=== PATIENT | female | born 1995 | race Caucasian/White ===

== ENCOUNTER → 2017-02-27 | Outpatient (CLI) | payer BC ==
--- NOTE | 2017-02-27 07:33 | MR ---
EXAMINATION TYPE: MR cervical spine wo con DATE OF EXAM: 02/27/2017 6:46 AM COMPARISON: NONE HISTORY: neck pain Multiplanar MultiSpin echo imaging of the cervical spine was performed. Comparison: none C2-C3: No evidence for degenerative disc disease. No disc bulge/herniation or protrusion. No Canal stenosis. Foramina are patent bilaterally. C3-C4: No evidence for degenerative disc disease. No disc bulge/herniation or protrusion. No Canal stenosis. Foramina are patent bilaterally. C4-C5: No evidence for degenerative disc disease. No disc bulge/herniation or protrusion. No Canal stenosis. Foramina are patent bilaterally. C5-C6: No evidence for degenerative disc disease. No disc bulge/herniation or protrusion. No Canal stenosis. Foramina are patent bilaterally. C6-C7: No evidence for degenerative disc disease. No disc bulge/herniation or protrusion. No Canal stenosis. Foramina are patent bilaterally. C7-T1: No evidence for degenerative disc disease. No disc bulge/herniation or protrusion. No Canal stenosis. Foramina are patent bilaterally. Cervical segments are intact. There is normal alignment. Cervical spinal cord is of normal signal. Craniovertebral junction relationships are within normal limits. IMPRESSION: 1. Normal study.
== END | disposition home or self-care (01) ==
LOC: RADMRIMAIN 06:16
PROVIDERS: ATTEND Orthopaedic Surgery
DX: M54.2 Cervicalgia (principal)
CPT/HCPCS: 72141

== ENCOUNTER → 2017-09-02 | Outpatient (CLI) | payer BC ==
[2017-09-02 13:04] LABS: CHCM 32.7; HCT 41.1 % (34.0-46.0); HDW 2.31; HGB 13.4 gm/dL (11.4-16.0); MCHC 32.7 g/dL (31.0-37.0); MCV 88.9 fL (80.0-100.0); Mean Platelet Volume 7.5; RBC 4.63 m/uL (3.80-5.40); RDW 13.5 % (11.5-15.5); WBC 8.4 k/uL (3.8-10.6)
[2017-09-02 13:19] LABS: ALT 50 U/L (9-52); AST 30 U/L (14-36); Alkaline Phosphatase 60 U/L (38-126); Anion Gap 11 mmol/L; Blood Urea Nitrogen 10 mg/dL (7-17); Calcium 10.2 mg/dL (8.4-10.2); Carbon Dioxide 24 mmol/L (22-30); Chloride 106 mmol/L (98-107); Glucose 101 mg/dL (74-99); Non-African American GFR(MDRD) >60 (>60 ml/min/1.73 sqM); Potassium 4.1 mmol/L (3.5-5.1); Sodium 141 mmol/L (137-145); Total Bilirubin 0.5 mg/dL (0.2-1.3); Total Protein 7.7 g/dL (6.3-8.2)
[2017-09-02 16:25] LABS: Erythrocyte Sedimentation Rate 13 mm/hr (0-20)
== END | disposition home or self-care (01) ==
LOC: LABWHC1 12:17
PROVIDERS: ATTEND Physician Assistant
DX: K50.90 Crohn's disease, unspecified, without complications (principal)
CPT/HCPCS: 36415; 80053; 85027; 85652

== ENCOUNTER → 2017-09-05 | Outpatient (CLI) | payer BC ==
--- NOTE | 2017-09-05 09:25 | CT ---
EXAMINATION TYPE: CT abdomen pelvis wo/w con DATE OF EXAM: 09/05/2017 COMPARISON: NONE HISTORY: 22-year-old female Nauseated, vomited, weight loss and history of Crohn's disease TECHNIQUE: Contiguous axial scanning of the abdomen and pelvis before and after administration of 100 ml Omnipaque 300 IV contrast. Delayed images through the kidneys and coronal/sagittal reconstructio ns performed. CT DLP: 2434 mGycm Automated exposure control for dose reduction was used. FINDINGS: The heart is normal size without pericardial effusion. Lung bases clear without pleural effusion. Liver is enlarged measuring 20.5 cm craniocaudal. There is severe decreased attenuation of the hepati c parenchyma near that of simple fluid. Some focal fatty sparing seen along the gallbladder fossa. Gallbladder, adrenal glands, kidneys, spleen, and pancreas appear within normal limits. No biliary ductal dilatation. Portal venous system is patent. Numerous nonenlarged and borderline to mildly enlarged right abdominal mesenteric lymph nodes are pre sent measuring up to 8 mm. No dilated small bowel, free fluid, or free air. There is circumferential nodular fold thickening involving the distal 15 cm of the terminal ileum. No rmal appendix. There is prominent distending the mid to distal sigmoid and rectum measuring up to 5.0 cm wide. Abrup t caliber change at the distal rectum persists on both the noncontrast and postcontrast series, axial image 75 and sagittal image 33. There is mild circumferential wall thickening of the distal rectum h ere. No abnormal fluid collection the pelvis. Uterus and both ovaries are visualized. No pelvic lymphadeno todd. Bones: There is some subarticular sclerosis noted at the left greater than right SI joints. No osseou s destructive process. IMPRESSION: 1. NODULAR FOLD THICKENING OF THE DISTAL 15 CM OF THE TERMINAL ILEUM SUGGESTS ACTIVE CROHN'S ENTERITI S. 2. ABRUPT CALIBER CHANGE AT THE RECTUM WITH PROMINENT STOOL IN THE SIGMOID COLON WHICH IS DISTENDED U P TO 5 CM WIDE. GIVEN THAT THE CALIBER CHANGE PERSISTS ON BOTH PHASES OF IMAGING, AN INFLAMMATORY STR ICTURE IS NOT EXCLUDED. 3. HEPATOMEGALY WITH SEVERE HEPATIC STEATOSIS VERSUS EDEMA FROM HEPATITIS. CORRELATE WITH LFT's, LIPI D PROFILE, AND PATIENT RISK FACTORS. 4. RIGHT ABDOMINAL MESENTERIC LYMPH NODES BORDERLINE TO MILDLY ENLARGED LIKELY REACTIVE AND IN KEEPIN G WITH THE PATIENT'S CROHN'S DISEASE.
== END | disposition home or self-care (01) ==
LOC: RADCTMAIN 07:49
PROVIDERS: ATTEND Internal Medicine Gastroenterology
DX: R93.5 Abnormal findings on diagnostic imaging of other abdominal regions, including retroperitoneum (principal); R59.0 Localized enlarged lymph nodes
CPT/HCPCS: 74178; Q9967

== ENCOUNTER → 2017-12-30 | Outpatient (CLI) | payer BC | END | disposition home or self-care (01) | LOC: LABWHC1 13:20 | PROVIDERS: ATTEND Internal Medicine Endocrinology, Diabetes & Metabolism | DX: K50.00 Crohn's disease of small intestine without complications (principal) | CPT/HCPCS: 36415 ==

== ENCOUNTER → 2020-12-13 | Day surgery (SDC) | payer OTHER ==
[~2020-12-13] MED LIST: GLUCAGON 1 MG/ML VIAL IM STA
[2020-12-13 11:14] VITALS: BP 110/75; PULSE 75; RESP 18; TEMP 98
--- NOTE | 2020-12-14 05:11 | MR ---
EXAMINATION TYPE: MR Enterography DATE OF EXAM: 12/13/2020 COMPARISON: CT 09/05/2017 HISTORY: 25-year-old female K50.00, Crohn's Technique: Multiplanar, multisequence images of the abdomen and pelvis were obtained before and after administration of 7.5 mL intravenous Gadavist gadolinium contrast. VoLumen oral contrast was utiliz ed. FINDINGS: No biliary ductal dilatation. Portal venous system is patent. Gallbladder spleen, adrenal glands, kid neys, pancreas, and visualized portions of the inferior half of the liver show no gross abnormality. There is moderate circumferential wall thickening involving the distal 9 to 10 cm of the terminal ile um with corresponding mucosal hyperenhancement. No abscess or evident fistula formation. No obvious mesenteric lymphadenopathy. Normal appendix. Partially visualized moderate to large stool within the distal sigmoid and rectum wi th the rectum distended up to 6.9 cm wide with stool. Uterus anteverted. Follicular change in both ovaries. Prominent urinary distention of the bladder. IMPRESSION: 1. Thickened and hyperenhancing small bowel involving a 9 to 10 cm span of the terminal ileum suggest ing Crohn's ileitis. 2. Moderate to large stool distending the rectum up to 6.9 cm wide. The previous rectal caliber mcneill e noted on the 09/05/2017 CT is not well-demonstrated on the current study.
== END ==
LOC: RADMRIMAIN 10:31
PROVIDERS: ATTEND Physician Assistant
DX: K50.00 Crohn's disease of small intestine without complications (principal)
CPT/HCPCS: 96372; 72197; 74183; J1610; A9585

== ENCOUNTER 2021-09-18 20:51 | Emergency (ER) | payer BC, OTHER ==
[2021-09-18 21:25] VITALS: BP 138/86; PULSE 116; RESP 20; TEMP 98.4
[2021-09-18] MEDS ORDERED: ONDANSETRON 4 MG/2 ML VIAL IVP STA (22:30)
--- NOTE | 2021-09-18 22:40 | ED ---
General Adult HPI - General Chief complaint: Nausea/Vomiting/Diarrhea Stated complaint: COVID+, worsening symptoms Time Seen by Provider: 09/18/21 22:18 Source: patient, RN notes reviewed Mode of arrival: ambulatory Limitations: no limitations - History of Present Illness Initial comments: 26-year-old female presents emergency Department with chief complaint of COVID- 19. Patient states symptoms started 9 days ago. She did test positive on 09/12/2021. Patient states that she seems not improving. She's had increasing nausea, jaundice weakness, mild cough congestion. Patient states she does have Crohn's disease patient states she normally has nausea but it seems to worsening. No reported fever recently. Patient has mild bodyaches no other com plaints. - Related Data Home Medications Medication Instructions Recorded Confirmed Adalimumab [Humira Crohn's] 40 mg SQ Q14D 12/13/20 12/13/20 Norgestimate-Ethinyl Estradiol 1 tab PO DAILY 09/18/21 09/18/21 [Tri-Sprintec Tablet] Previous Rx's Medication Instructions Recorded Ondansetron Odt [Zofran Odt] 4 mg PO Q8HR PRN #10 tab 09/18/21 Allergies Allergy/AdvReac Type Severity Reaction Status Date / Time latex Allergy Itching, Verified 09/18/21 21:25 swelling, red Review of Systems ROS Statement: Those systems with pertinent positive or pertinent negative responses have been documented in the HPI. ROS Other: All systems not noted in ROS Statement are negative. Past Medical History Past Medical History: Skin Disorder Additional Past Medical History / Comment(s): crohns, eczema, History of Any Multi-Drug Resistant Organisms: None Reported Past Surgical History: Tonsillectomy Additional Past Surgical History / Comment(s): colonoscopy, surgery for rectal fistula, Past Anesthesia/Blood Transfusion Reactions: No Reported Reaction Past Psychological History: No Psychological Hx Reported Smoking Status: Never smoker Past Alcohol Use History: Occasional Past Drug Use History: None Reported - Past Family History Mother Family Medical History: No Reported History General Exam Limitations: no limitations General appearance: alert, in no apparent distress Head exam: Present: atraumatic, normocephalic, normal inspection Eye exam: Present: normal appearance, PERRL, EOMI. Absent: scleral icterus, conjunctival injection, periorbital swelling ENT exam: Present: normal exam, normal oropharynx, mucous membranes moist Neck exam: Present: normal inspection. Absent: tenderness, meningismus, lymphadenopathy Respiratory exam: Present: normal lung sounds bilaterally, wheezes. Absent: respiratory distress, rales, rhonchi, stridor Cardiovascular Exam: Present: regular rate, normal rhythm, normal heart sounds. Absent: systolic murmur, diastolic murmur, rubs, gallop, clicks Course Vital Signs 09/18/21 21:22 Temperature 98.4 F Pulse Rate 116 H Respiratory 20 Rate Blood Pressure 138/86 O2 Sat by Pulse 99 Oximetry Medical Decision Making - Medical Decision Making Patient present for COVID-19. Patient was well hydrated, given antiemetics, given monoclonal antibodies and will be discharged in stable condition. Disposition Clinical Impression: COVID-19, Nausea, Dehydration Disposition: HOME SELF-CARE Condition: Stable Instructions (If sedation given, give patient instructions): Coronavirus Disease 2019 (COVID-19) Additional Instructions: Please return to the Emergency Department if symptoms worsen or any other concerns. Prescriptions: Ondansetron Odt [Zofran Odt] 4 mg PO Q8HR PRN #10 tab PRN Reason: Nausea Is patient prescribed a controlled substance at d/c from ED?: No Referrals: Charlotte Bustamante MD [Primary Care Provider] - 1-2 days Time of Disposition: 22:40
[2021-09-18] MEDS ORDERED: SOTROVIMAB (EUA) 500 MG in SODIUM CHLORIDE 0.9% 100 ML IVPB ONE (22:45)
[2021-09-18] MEDS ORDERED: SODIUM CHLORIDE 0.9% 50 ML IVPB ONE (22:45)
[2021-09-18 22:53] LABS: Basophils % (A) 1 %; Eosinophils % (A) 0 %; HCT 46.8 % (34.0-46.0); HGB 16.3 gm/dL (11.4-16.0); Lymphocytes # (A) 1.2 k/uL (1.0-4.8); Lymphocytes % (A) 22 %; MCH 31.7 pg (25.0-35.0); MCHC 34.7 g/dL (31.0-37.0); MCV 91.2 fL (80.0-100.0); Monocytes # (A) 0.5 k/uL (0-1.0); Monocytes % (A) 9 %; Neutrophils # (A) 3.5 k/uL (1.3-7.7); Neutrophils % (A) 65 %; Platelet Count 174 k/uL (150-450); RBC 5.13 m/uL (3.80-5.40); RDW 12.6 % (11.5-15.5); WBC 5.3 k/uL (3.8-10.6)
[2021-09-19 03:46] LABS: ALT 24 U/L (4-34); AST 29 U/L (14-36); African American GFR (CKD) >90 (>60 ml/min/1.73 sqM); Albumin 5.2 g/dL (3.5-5.0); Alkaline Phosphatase 65 U/L (38-126); Anion Gap 20 mmol/L; Blood Urea Nitrogen 11 mg/dL (7-17); Calcium 9.8 mg/dL (8.4-10.2); Carbon Dioxide 17 mmol/L (22-30); Chloride 101 mmol/L (98-107); Glucose 84 mg/dL (74-99); Non-African American GFR(CKD) >90 (>60 ml/min/1.73 sqM); Potassium 3.5 mmol/L (3.5-5.1); Sodium 138 mmol/L (137-145); Total Bilirubin 0.7 mg/dL (0.2-1.3); Total Protein 8.5 g/dL (6.3-8.2)
== END 2021-09-19 02:00 | disposition home or self-care (01) ==
LOC: EC 20:51
DX: U07.1 COVID-19 (principal); R11.0 Nausea; E86.0 Dehydration; Z91.040 Latex allergy status
CPT/HCPCS: 99284; 96374; 80053; 85025; J2405; Q0247

== ENCOUNTER 2021-11-17 16:46 | Observation (INO) | payer BC ==
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
[2021-11-17] MEDS ORDERED: RX INFO: IV CONTRAST WAS GIVEN 1 EACH MISC MISCELLANE PRN (17:08)
[2021-11-17] MEDS ORDERED: SODIUM CHLORIDE 0.9% 1,000 ML IV STA (17:08)
[2021-11-17] MEDS ORDERED: HYDROmorphone 0.5 MG/0.5 ML SYRINGE IVP STA (17:08)
--- NOTE | 2021-11-17 17:27 | XR ---
EXAMINATION TYPE: XR pelvis AP view DATE OF EXAM: 11/17/2021 CLINICAL HISTORY: Injury TECHNIQUE: A single AP view of the pelvis is obtained. COMPARISON: None. FINDINGS: There is no acute fracture/dislocation evident in the pelvis. The hip and sacroiliac join ts appear symmetric and unremarkable. The overlying soft tissue appears unremarkable. IMPRESSION: There is no acute fracture or dislocation in the pelvis.
--- NOTE | 2021-11-17 17:28 | XR ---
EXAMINATION TYPE: XR chest 1V portable DATE OF EXAM: 11/17/2021 COMPARISON: NONE HISTORY: Injury TECHNIQUE: Single frontal view of the chest is obtained. FINDINGS: There is no focal air space opacity, pleural effusion, or pneumothorax seen. The cardiac silhouette size is within normal limits. The osseous structures are intact. IMPRESSION: No acute process.
[2021-11-17 17:31] LABS: Basophils # (A) 0.1 k/uL (0-0.2); Basophils % (A) 0 %; Eosinophils % (A) 0 %; HCG,Qualitative Serum Not Detected; HCT 43.7 % (34.0-46.0); HGB 14.1 gm/dL (11.4-16.0); Lymphocytes # (A) 2.6 k/uL (1.0-4.8); Lymphocytes % (A) 10 %; MCH 30.6 pg (25.0-35.0); MCHC 32.1 g/dL (31.0-37.0); Mean Platelet Volume 7.5; Monocytes # (A) 1.2 k/uL (0-1.0); Monocytes % (A) 5 %; Neutrophils # (A) 22.8 k/uL (1.3-7.7); Neutrophils % (A) 85 %
[2021-11-17 17:33] LABS: Platelet Count 361 k/uL (150-450)
[2021-11-17 17:45] LABS: ALT 28 U/L (4-34); AST 43 U/L (14-36); African American GFR (CKD) >90 (>60 ml/min/1.73 sqM); Albumin 4.8 g/dL (3.5-5.0); Alcohol <10 mg/dL; Alkaline Phosphatase 53 U/L (38-126); Anion Gap 14 mmol/L; Blood Urea Nitrogen 19 mg/dL (7-17); Calcium 10.2 mg/dL (8.4-10.2); Carbon Dioxide 17 mmol/L (22-30); Chloride 106 mmol/L (98-107); Glucose 145 mg/dL (74-99); Non-African American GFR(CKD) >90 (>60 ml/min/1.73 sqM); Sodium 137 mmol/L (137-145); Total Bilirubin 0.8 mg/dL (0.2-1.3); Total Protein 7.8 g/dL (6.3-8.2)
[2021-11-17 17:47] LABS: Potassium 3.8 mmol/L (3.5-5.1)
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
[2021-11-17 18:11] LABS: Appearance,Urine Clear (Clear); Bacteria,Urine Rare /hpf; Bilirubin,Urine Negative (Negative); Blood,Urine Small (Negative); Color,Urine Yellow; Glucose,Urine (UA) Negative (Negative); Ketones,Urine 2+ (Negative); Leukocyte Esterase,Urine Negative (Negative); Mucus,Urine Occasional /hpf; Nitrite,Urine Negative (Negative); PH, Urine 6.5 (5.0-8.0); Protein,Urine 1+ (Negative); RBC,Urine 30 /hpf (0-5); Squamous Epithelial Cell,Urine 10 /hpf (0-4); Urobilinogen,Urine <2.0 mg/dL (<2.0); WBC,Urine 3 /hpf (0-5)
[2021-11-17 18:14] LABS: Specific Gravity,Urine >1.050 (1.001-1.035)
[2021-11-17 18:21] LABS: INR 2.1 (<1.2); Partial Thromboplastin Time 58.3 sec (22.0-30.0); Prothrombin Time 20.9 sec (9.0-12.0)
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
[2021-11-17] MEDS ORDERED: NALOXONE 0.4 MG/ML 1 ML VIAL IV PRN (19:07)
[2021-11-17] MEDS ORDERED: HYDROmorphone 0.5 MG/0.5 ML SYRINGE IVP PRN (19:07)
[2021-11-17] MEDS ORDERED: MORPHINE SULFATE 4 MG/ML SYRINGE IVP STA (19:13)
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
[2021-11-17 21:01] LABS: Basophils # (A) 0.1 k/uL (0-0.2); Basophils % (A) 0 %; Eosinophils % (A) 0 %; HCT 38.8 % (34.0-46.0); HGB 12.6 gm/dL (11.4-16.0); Lymphocytes # (A) 1.1 k/uL (1.0-4.8); Lymphocytes % (A) 4 %; MCH 30.8 pg (25.0-35.0); MCHC 32.4 g/dL (31.0-37.0); MCV 95.1 fL (80.0-100.0); Mean Platelet Volume 7.7; Monocytes # (A) 1.2 k/uL (0-1.0); Monocytes % (A) 5 %; Neutrophils # (A) 21.7 k/uL (1.3-7.7); Neutrophils % (A) 90 %; Platelet Count 285 k/uL (150-450); RBC 4.09 m/uL (3.80-5.40); WBC 24.3 k/uL (3.8-10.6)
[2021-11-17 21:31] VITALS: RESP 18
[2021-11-17 21:59] LABS: Partial Thromboplastin Time 21.6 sec (22.0-30.0)
[2021-11-17] MEDS ORDERED: HYDROmorphone 1 MG/ML 1 ML SYRINGE IVP PRN ×2 (22:01→22:10)
[2021-11-17] MEDS ORDERED: ONDANSETRON 4 MG/2 ML VIAL IVP PRN (22:10)
[2021-11-17] MEDS ORDERED: HYDROcodone/APAP 5-325MG 1 EACH TAB PO PRN (22:10)
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
[2021-11-17] MEDS: HEPARIN SODIUM,PORCINE/PF 5,000 UNIT/0.5 ML SYRINGE SQ SCH (22:35)
[2021-11-17] MEDS: D5-0.45% NACL WITH KCL 20MEQ/L 1,000 ML IV SCH (22:36)
[2021-11-18] MEDS: KETOROLAC 30 MG/ML 1 ML VIAL IVP SCH ×3 (00:20→14:40)
[2021-11-18] MEDS: D5-0.45% NACL WITH KCL 20MEQ/L 1,000 ML IV SCH (02:53)
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
[2021-11-18] MEDS ORDERED: DOCUSATE 100 MG CAP PO SCH (09:00)
[2021-11-18] MEDS ORDERED: FAMOTIDINE 20 MG TAB PO SCH (09:00)
[2021-11-18 09:08] LABS: Basophils # (A) 0.07 X 10*3/uL (0.00-0.10); Basophils % (A) 0.6 %; Eosinophils # (A) 0.01 X 10*3/uL (0.04-0.35); Eosinophils % (A) 0.1 %; HCT 36.2 % (37.2-46.3); Immature Grans, Automated 0.4 %; Lymphocytes # (A) 2.22 X 10*3/uL (0.90-5.00); Lymphocytes % (A) 19.1 %; MCH 30.8 pg (27.0-32.0); MCHC 33.1 g/dL (32.0-37.0); MCV 93.1 fL (80.0-97.0); Mean Platelet Volume 10.4 fL (9.5-12.2); Monocytes # (A) 1.27 X 10*3/uL (0.20-1.00); Monocytes % (A) 10.9 %; NRBC Per 100 WBC 0 /100 WBCS (0.0-0.0); Neutrophils # (A) 7.98 X 10*3/uL (1.80-7.70); Neutrophils % (A) 68.9 %; Platelet Count 275 X 10*3/uL (140-440); RBC 3.89 X 10*6/uL (4.10-5.20); RDW 12.7 % (11.5-14.5)
[2021-11-18] MEDS: HEPARIN SODIUM,PORCINE/PF 5,000 UNIT/0.5 ML SYRINGE SQ SCH (09:15)
[2021-11-18 09:26] LABS: African American GFR (CKD) 145.8 (60.0-200.0); Albumin 4.2 g/dL (3.8-4.9); Albumin/Globulin Ratio 2.21 (1.60-3.17); Anion Gap 13.3 mmol/L (10.00-18.00); BUN/Creat Ratio 16.67 Ratio (12.00-20.00); Calcium 9.1 mg/dL (8.7-10.3); Carbon Dioxide 17.7 mmol/L (20.0-27.5); Globulin 1.9 g/dL (1.6-3.3); Non-African American GFR(CKD) 125.8 (60.0-200.0); Potassium 3.8 mmol/L (3.5-5.5); Total Bilirubin 0.5 mg/dL (0.30-1.20); Total Protein 6.1 g/dL (6.2-8.2)
[2021-11-18 10:03] LABS: INR 0.99 (0.90-1.11); Prothrombin Time 10.9 sec (9.9-11.9)
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
[2021-11-18 13:05] VITALS: BP 102/62; PULSE 69; TEMP 98.3
== END 2021-11-18 15:35 | disposition home or self-care (01) ==
LOC: EC 16:46 → 5NMEDONC 19:08
PROVIDERS: ADMIT Surgery; ATTEND Surgery
DX: S22.060A Wedge compression fracture of T7-T8 vertebra, initial encounter for closed fracture (principal); S32.049A Unspecified fracture of fourth lumbar vertebra, initial encounter for closed fracture; S22.32XA Fracture of one rib, left side, initial encounter for closed fracture; S50.12XA Contusion of left forearm, initial encounter; R79.1 Abnormal coagulation profile; D72.829 Elevated white blood cell count, unspecified; K50.90 Crohn's disease, unspecified, without complications; L30.9 Dermatitis, unspecified; V86.52XA Driver of snowmobile injured in nontraffic accident, initial encounter; Y93.29 Activity, other involving ice and snow; Y92.838 Other recreation area as the place of occurrence of the external cause; W22.09XA Striking against other stationary object, initial encounter; Z20.822 Contact with and (suspected) exposure to COVID-19; Z79.899 Other long term (current) drug therapy; Z79.3 Long term (current) use of hormonal contraceptives; Z91.040 Latex allergy status
CPT/HCPCS: 96376 ×2; 96372 ×2; 96375 ×2; 96361; 96374; 99285; 36415; 93005; 86900; 86901; 80053 ×2; 84484; 85025 ×2; 85610 ×2; 85730; 86850; 81001; 84703; 80320; 87635; 72170; 73090; 71045; 72129; 71260; 74177; G0378 ×2; J2270; J2405; J1885; J1170 ×2; Q9967; J1644 ×2

== ENCOUNTER → 2022-01-09 | Outpatient (CLI) | payer BC ==
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
== END | disposition home or self-care (01) ==
LOC: RADMRIMAIN 11:37
PROVIDERS: ATTEND Orthopaedic Surgery Orthopaedic Surgery of the Spine
DX: S70.02XA Contusion of left hip, initial encounter (principal); X58.XXXA Exposure to other specified factors, initial encounter
CPT/HCPCS: 72197; A9585

== ENCOUNTER → 2022-02-08 | Outpatient (CLI) | payer BC ==
[2022-02-08 18:10] LABS: Basophils # (A) 0.11 X 10*3/uL (0.00-0.10); Basophils % (A) 1.1 %; Eosinophils # (A) 0.05 X 10*3/uL (0.04-0.35); Eosinophils % (A) 0.5 %; HCT 40.7 % (37.2-46.3); HGB 12.8 g/dL (12.0-15.0); Immature Grans, Automated 0.5 %; Lymphocytes # (A) 2.62 X 10*3/uL (0.90-5.00); Lymphocytes % (A) 26.1 %; MCH 29.4 pg (27.0-32.0); MCHC 31.4 g/dL (32.0-37.0); MCV 93.3 fL (80.0-97.0); Mean Platelet Volume 10.6 fL (9.5-12.2); Monocytes # (A) 0.73 X 10*3/uL (0.20-1.00); Monocytes % (A) 7.3 %; NRBC Per 100 WBC 0 /100 WBCS (0.0-0.0); Neutrophils # (A) 6.49 X 10*3/uL (1.80-7.70); Neutrophils % (A) 64.5 %; Platelet Count 326 X 10*3/uL (140-440); RBC 4.36 X 10*6/uL (4.10-5.20); RDW 12.1 % (11.5-14.5); WBC 10.05 X 10*3/uL (4.50-10.00)
[2022-02-08 21:55] LABS: Erythrocyte Sedimentation Rate 19 mm/Hr (0-20)
[2022-02-08 22:03] LABS: Hepatitis B Surface AB- Quant 3.5 mIU/mL; Hepatitis B Surface Antibody Nonreactive (Nonreactive)
[2022-02-08 22:04] LABS: Hepatitis B Core IgM Nonreactive (Nonreactive); Hepatitis B Surface Antigen Nonreactive (Nonreactive)
[2022-02-08 22:13] LABS: % Iron Saturation 15.94 (12.00-45.00); African American GFR (CKD) 127.5 (60.0-200.0); Albumin 4.7 g/dL (3.8-4.9); Albumin/Globulin Ratio 2.03 (1.60-3.17); Anion Gap 12.9 mmol/L (10.00-18.00); BUN/Creat Ratio 14.53 Ratio (12.00-20.00); Blood Urea Nitrogen 10.9 mg/dL (9.0-27.0); C Reactive Protein 1.7 mg/dL (0.00-0.80); Calcium 9.9 mg/dL (8.7-10.3); Carbon Dioxide 24.3 mmol/L (20.0-27.5); Ferritin 65.5 ng/mL (10.0-291.0); Globulin 2.3 g/dL (1.6-3.3); Potassium 4.2 mmol/L (3.5-5.5); Total Bilirubin 0.3 mg/dL (0.30-1.20)
== END | disposition home or self-care (01) ==
LOC: LABWHC1 11:03
PROVIDERS: ATTEND Physician Assistant
DX: K50.00 Crohn's disease of small intestine without complications (principal)
CPT/HCPCS: 36415; 80053; 82306; 82607; 82728; 83540; 83550; 85025; 85652; 86140; 86480; 86704; 86705; 86706; 87340

== ENCOUNTER 2022-06-07 06:46 | Day surgery (SDC) | payer BC ==
[2022-06-06 08:41] VITALS: BMI 30.7
[~2022-06-07 06:46] MED LIST changes: +ACETAMINOPHEN TAB 500 MG TAB PO PRN; +DEXAMETHASONE SOD PHOSPHATE 4 MG/ML 1 ML VIAL IV ONE; -GLUCAGON 1 MG/ML VIAL IM STA; +HEPARIN SODIUM,PORCINE/PF 5,000 UNIT/0.5 ML SYRINGE SQ PRN; +HYDROmorphone 0.5 MG/0.5 ML SYRINGE IVP PRN; +LACTATED RINGERS 1,000 ML IV SCH; +LIDOCAINE 1% (10MG/ML) FOR IV START INTRADERMA PRN; +Pre Op ABX Message 1 EACH MISC MISCELLANE ONE
[2022-06-07] MEDS: ONDANSETRON 4 MG/2 ML VIAL IVP ONE ×2 (07:32→09:44)
[2022-06-07] MEDS ORDERED: MIDAZOLAM 2 MG/2 ML VIAL ONE (07:48)
[2022-06-07] MEDS ORDERED: PHENYLEPHRINE-0.9% NACL SYG 1,000 MCG/10 ML SYRINGE ONE (07:48)
[2022-06-07] MEDS ORDERED: HYDROmorphone (PF) 1 MG/ML ONE (07:48)
[2022-06-07] MEDS ORDERED: fentaNYL (PF) 50 MCG/ML 2 ML AMP ONE (07:48)
[2022-06-07] MEDS ORDERED: PROPOFOL 10 MG/ML 20 ML VIAL IV ONE (07:48)
[2022-06-07] MEDS ORDERED: KETOROLAC 15 MG/ML 1 ML VIAL ONE (07:48)
[2022-06-07] MEDS ORDERED: LIDOCAINE 2% INJ 20 MG/ML (2 ML VIAL) ONE (07:48)
[2022-06-07] MEDS ORDERED: SODIUM CHLORIDE 0.9% 100 ML with ceFAZolin 2,000 MG IV ONE ×2 (07:51)
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
[2022-06-07] MEDS ORDERED: BUPIVACAIN-EPI 0.25%-1:200,000 30 ML VIAL SQ ONE (08:15)
[2022-06-07] MEDS ORDERED: LACTATED RINGERS 1,000 ML IV ONE (08:36)
[2022-06-07 09:01] VITALS: TEMP 98.2
[2022-06-07] MEDS ORDERED: NALOXONE 0.4 MG/ML 1 ML VIAL IV PRN (09:03)
[2022-06-07] MEDS ORDERED: HYDROcodone/APAP 5-325MG 1 EACH TAB PO PRN (09:03)
[2022-06-07 09:04] VITALS: RESP 16
--- NOTE | 2022-06-07 09:09 | P.OP ---
Date of Procedure: 06/07/22 Procedure(s) Performed: PREOPERATIVE DIAGNOSIS: Left hip/thigh hematoma/seroma POSTOPERATIVE DIAGNOSIS: Same PROCEDURE: Incision drainage and evacuation left hip seroma SURGEON: Dianna BLOCKL: Minimal ANESTHESIA: General COMPLICATIONS: None OPERATIVE PROCEDURE: Patient placed in the operative table in the right decubitus position. An incision was made overlying the tense seroma involving the left lateral hip/proximal thigh region. Incision length 6 cm. Entrance into a brownish colored seroma cavity took place. One liter of fluid was evacuated along with additional fluid present on the sponges. The cavity was then inspected. I manually removed approximately 6-10 ounces of additional organized clot from the base of the seroma. Gentle debridement of place of the edges to remove additional adherent clot formation. Irrigation of the seroma cavity then took place with over 1 L of saline. No bleeding was seen. A 19 round RODDY drain was then placed in the seroma cavity exiting inferiorly. This was sutured in place using 2 separate 3-0 silk sutures. The subcutaneous tissues were then closed using 3-0 Vicryl sutures and the skin was closed using a running 4-0 Monocryl stitch. Skin glue and sterile dressings were applied. DISPOSITION: Stable to recovery room
[2022-06-07 10:33] VITALS: BP 146/85; PULSE 71
== END 2022-06-07 11:16 | disposition home or self-care (01) ==
LOC: OR 06:46
PROVIDERS: ATTEND Surgery
DX: S70.02XD Contusion of left hip, subsequent encounter (principal); F41.9 Anxiety disorder, unspecified; Z91.040 Latex allergy status; Z79.899 Other long term (current) drug therapy; Z79.3 Long term (current) use of hormonal contraceptives; X58.XXXD Exposure to other specified factors, subsequent encounter
CPT/HCPCS: 81025; 87070; 87205; 87075; 10140; J2250; J1100; J2405; J0690; J3010; J1170; J1885; J2370; J2704; J1790; J1644; J2001

== ENCOUNTER → 2023-05-20 | Outpatient (CLI) | payer BC ==
[2023-05-20 15:31] LABS: Basophils # (A) 0.09 X 10*3/uL (0.00-0.10); Basophils % (A) 1.1 %; Eosinophils # (A) 0.04 X 10*3/uL (0.04-0.35); Eosinophils % (A) 0.5 %; HCT 40.1 % (37.2-46.3); HGB 13.3 d/dL (12.0-15.0); Lymphocytes # (A) 1.88 X 10*3/uL (0.90-5.00); Lymphocytes % (A) 22.6 %; MCH 30.2 pg (27.0-32.0); MCHC 33.2 d/dL (32.0-37.0); MCV 90.9 FL (80.0-97.0); Mean Platelet Volume 10.1 FL (9.5-12.2); Monocytes # (A) 0.42 X 10*3/uL (0.20-1.00); NRBC Per 100 WBC 0 X 10*3/uL (0.00-0.01); Neutrophils # (A) 5.87 X 10*3/uL (1.80-7.70); Neutrophils % (A) 70.6 %; Platelet Count 288 X 10*3/uL (140-440); RBC 4.41 X 10*6/uL (4.10-5.20); RDW 11.7 % (11.5-14.5); WBC 8.32 X 10*3/uL (4.50-10.00)
[2023-05-20 16:00] LABS: BUN/Creat Ratio 13.57 Ratio (12.00-20.00); Blood Urea Nitrogen 9.5 mg/dL (9.0-27.0); Glucose 92 mg/dL (70-110)
[2023-05-20 16:01] LABS: ALT 21 U/L (8-44); AST 17 U/L (13-35); Albumin 4.9 d/dL (3.8-4.9); Albumin/Globulin Ratio 2.13 Ratio (1.60-3.17); Alkaline Phosphatase 47 U/L (41-126); Calcium 9.8 mg/dL (8.7-10.3); Chloride 106 mmol/L (96-109); Globulin 2.3 d/dL (1.6-3.3); Potassium 4.6 mmol/L (3.5-5.5); Sodium 141 mmol/L (135-145); Total Bilirubin 0.6 mg/dL (0.3-1.2); Total Protein 7.2 d/dL (6.2-8.2)
[2023-05-20 18:33] LABS: Erythrocyte Sedimentation Rate 6 mm/Hr (0-20)
== END | disposition home or self-care (01) ==
LOC: LABWHC1 11:42
PROVIDERS: ATTEND Physician Assistant
DX: K50.00 Crohn's disease of small intestine without complications (principal)
CPT/HCPCS: 36415; 80053; 85025; 85652; 86140